=== PATIENT | male | born 1955 | race African-American/Black ===

== ENCOUNTER 2017-06-06 15:32 | Emergency (ER) | payer SELFPAY ==
[~2017-06-06] VITALS: Ht 177.8 cm; Wt 106.0 kg
[2017-06-06 17:00] LABS: BASOPHILS % 1.7 % (0.0-2.0); HEMATOCRIT. 41.4 % (42.0-52.0); HEMOGLOBIN. 13.5 g/dL (14.0-18.0); MEAN CORPUSCULAR HEMOGLOBIN 31.2 pg (28.0-32.0); MEAN CORPUSCULAR VOLUME 95.4 fL (80.0-94.0); MEAN PLATELET VOLUME 8.1 fl (7.4-10.4); MONOCYTES % 6.3 % (2.0-8.0); PLATELET 191 x1000/uL (130-400); RED BLOOD CELL COUNT 4.34 mill/uL (4.7-6.1); RED CELL DISTRIBUTION WIDTH 15.1 % (11.6-14.6)
[2017-06-06 17:01] LABS: CHLORIDE 101 mEq/L (98-107)
[2017-06-06 17:11] LABS: KETONES URINE NEGATIVE (NEGATIVE); LEUKOCYTE ESTERASE URINE NEGATIVE (NEGATIVE); NITRITE URINE NEGATIVE (NEGATIVE); OCCULT BLOOD URINE NEGATIVE (NEGATIVE); PROTEIN URINE NEGATIVE (NEGATIVE); SPECIFIC GRAVITY URINE 1.005 (1.005-1.030); UROBILINOGEN URINE 0.2 E.U./dL (0.2-1.0)
[2017-06-06 17:12] LABS: CARBON DIOXIDE 25 mEq/L (21-32)
[2017-06-06 17:13] LABS: CLARITY URINE CLEAR (CLEAR); COLOR URINE YELLOW (YELLOW)
[2017-06-06 17:14] LABS: ETHANOL BLOOD 308 mg/dL
[2017-06-06 17:17] LABS: INR 1.1; PROTHROMBIN TIME 11.2 sec (9.4-11.6)
[2017-06-06 17:18] LABS: *AMPHETAMINES SCREEN URINE NEGATIVE (NEGATIVE); *BARBITURATES SCREEN URINE NEGATIVE (NEGATIVE); *BENZODIAZEPINES SCREEN URINE NEGATIVE (NEGATIVE); *COCAINE SCREEN URINE NEGATIVE (NEGATIVE); CANNABINOID URINE SCREEN PRESUMTIVE POSITIVE (NEGATIVE); METHADONE URINE SCREEN NEGATIVE (NEGATIVE); OPIATES URINE SCREEN NEGATIVE (NEGATIVE); PHENCYCLIDINE URINE SCREEN PRESUMTIVE POSITIVE (NEGATIVE)
[2017-06-06] MEDS ORDERED: SODIUM CHLORIDE 0.9% 1,000 ML IV ONE (18:15)
[2017-06-07 05:38] VITALS: BP 101/76
== END 2017-06-07 05:40 | disposition home or self-care (01) ==
LOC: ER 15:40
DX: F10.229 Alcohol dependence with intoxication, unspecified (principal); R79.1 Abnormal coagulation profile; Z59.0 Homelessness; Y90.8 Blood alcohol level of 240 mg/100 ml or more
CPT/HCPCS: 29125; 36415; 70450; 71010; 73110; 80053; 80305; 81003; 82962; 85025; 85610; 93005; 96360; 99285; G0482; J7030; Z7610